=== PATIENT | female | born 1995 | race African-American/Black ===

== ENCOUNTER 2017-05-08 21:25 | Emergency (ER) | payer MEDICAID ==
[2017-05-08 22:30] LABS: #Eosinphils 0.3 thou/uL (0.0-0.7); #Lymphocytes 1.9 thou/uL (1.20-3.40); #Monocytes 0.7 thou/uL (0.11-0.59); #Neutrophils 2.8 thou/uL (1.40-6.50); %Basophils 0.7 % (0.0-1.0); %Eosinophils 4.7 % (0.0-10.0); %Lymphocytes 33.3 % (21.0-51.0); %Monocytes 12.2 % (0.0-10.0); Hematocrit 35.4 % (36.0-47.0); Mean Platelet Volume 6.9 fL (7.4-10.4); Red Blood Cell (RBC) Count 4.15 mill/uL (4.20-5.40); White Blood Cell (WBC) Count 5.8 thou/uL (4.8-10.8)
[2017-05-08 22:42] LABS: ALT (SGPT) 19 U/L (8-55); AST (SGOT) 19 U/L (5-34); Alkaline Phosphatase 69 U/L (40-150); Anion Gap 10 mmol/L (10-20); BUN (Urea Nitrogen) 9 mg/dL (7.0-18.7); Bilirubin, Total 0.4 mg/dL (0.2-1.2); Calc. Creatinine Clearance 0 mL/min (70-130); Calcium 8.3 mg/dL (7.8-10.44); Carbon Dioxide 23 mmol/L (22-29); Chloride 109 mmol/L (98-107); Estimated GFR-MDRD Greater than 90; Globulin 3.6 g/dL (2.4-3.5); Lipase 20 U/L (8-78); Protein, Total 7.1 g/dL (6.0-8.3)
[2017-05-08] MEDS ORDERED: Morphine 4 MG/ML VIAL ONE (23:36)
[2017-05-08] MEDS ORDERED: Ondansetron HCl/PF 4 MG/2 ML Vial ONE (23:36)
[2017-05-09 01:45] LABS: Bilirubin Negative (Negative); Blood, Urine Negative (Negative); Glucose, Urine (Dipstick) Negative (Negative); Ketone, Urine Negative (Negative); Nitrite Positive (Negative); Protein, Urine (Dipstick) Negative (Neg-Trace); Urobilinogen 0.2 mg/dL (0.2-1.0)
[2017-05-09 01:48] LABS: Bacteria/HPF 4+ HPF (None Seen); Hyaline Casts/LPF 0-3 HYALINE CAST LPF (0-3 Hyaline); RBC/HPF 0-3 HPF (0-3); WBC/HPF 0-3 HPF (0-3)
[2017-05-09] MEDS ORDERED: Ibuprofen 800 MG TAB ONE (02:18)
[2017-05-09] MEDS ORDERED: Cephalexin 250 MG CAP ONE (02:18)
--- NOTE | 2017-05-09 07:16 | CT ---
CT OF THE ABDOMEN AND PELVIS WITH IV CONTRAST: INDICATION: Diffuse abdominal pain and vaginal bleeding. COMPARISON: CT of the chest, abdomen, and pelvis dated 12/06/15. FINDINGS: There is some subsegmental volume loss involving the both lower lobes. Calcified granuloma is seen within the spleen. There is mild splenomegaly measuring 13.7 cm. The liver, pancreas, and adrenal glands appear within normal limits. No free fluid or lymphadenopath y is evident. There is a normal appearance of the right lower quadrant. Bladder, rectum, and perire ctal soft tissues are unremarkable. There is mild free fluid in the pelvis. No acute osseous abnorm ality is evident. IMPRESSION: 1. Mild splenomegaly. 2. Nonspecific mild free fluid in the pelvis. 3. Normal appendix. POS: [facility]
== END 2017-05-09 02:41 | disposition home or self-care (01) ==
LOC: ERS 21:25
DX: N39.0 Urinary tract infection, site not specified (principal); R10.84 Generalized abdominal pain; J45.909 Unspecified asthma, uncomplicated
CPT/HCPCS: 36415; 74177; 80053; 81003; 81015; 83690; 84703; 85025; 87077; 87086; 87186; 96361; 96374; 96375; J2270; J2405